=== PATIENT | female | born 1995 | race Caucasian/White ===

== ENCOUNTER 2018-11-06 14:07 | Emergency (ER) | payer MEDICAID ==
[~2018-11-06] VITALS: Ht 172.7 cm; Wt 68.9 kg
[2018-11-06 14:16] VITALS: BP_SYST 125
[2018-11-06] MEDS ORDERED: KETOROLAC TROMETHAMINE 60 MG/2 ML VIAL IM ONE (14:45)
[2018-11-06] MEDS ORDERED: DEXAMETHASONE SOD PHOSPHATE 10 MG/ML VIAL IM ONE (14:45)
[2018-11-06 15:10] VITALS: BP_SYST 125
== END 2018-11-06 15:10 | disposition home or self-care (01) ==
LOC: SED 14:07
DX: J02.9 Acute pharyngitis, unspecified (principal); R03.0 Elevated blood-pressure reading, without diagnosis of hypertension
CPT/HCPCS: 81025; 96372; 99283; J1100; J1885

== ENCOUNTER 2019-01-01 09:55 | Emergency (ER) | payer MEDICAID ==
[~2019-01-01] VITALS: Ht 172.7 cm; Wt 72.6 kg
[2019-01-01 10:04] VITALS: BP_SYST 141
--- NOTE | 2019-01-01 10:09 | NUR ---
Patient to ER bed 8 to gown for evaluation. Side rails up. Report given to John RAMIREZ.
--- NOTE | 2019-01-01 10:15 | NUR ---
Pt presents to ED c/o R aqnkle pain s/p missed step . Pt has no acute distress noted no deformity.Pt unable to bear full weight.
--- NOTE | 2019-01-01 10:18 | NUR ---
ER Dr. Linares at bedside examining patient.
--- NOTE | 2019-01-01 13:03 | NUR ---
Pt tolerated splint placement.
--- NOTE | 2019-01-01 13:06 | NUR ---
Crutches properly fitted for patient by Paras COVARRUBIAS . Patient given crutch walking instructions and demonstration. Is able to demonstrate adequate crutch walking technique with crutches provided.
--- NOTE | 2019-01-01 13:10 | NUR ---
Patient given written and verbal discharge instructions and verbalizes understanding. ER MD discussed with patient the results and treatment provided. Patient in stable condition. ID arm band removed. Rx of motrin given. Patient educated on pain management and to follow up with PMD. Pain Scale 0 . Opportunity for questions provided and answered. Medication side effect fact sheet provided.
[2019-01-01 14:41] VITALS: BP_SYST 135
== END 2019-01-01 13:10 | disposition home or self-care (01) ==
LOC: SED 09:55
DX: S93.401A Sprain of unspecified ligament of right ankle, initial encounter (principal); S93.601A Unspecified sprain of right foot, initial encounter; X50.9XXA Other and unspecified overexertion or strenuous movements or postures, initial encounter; Y93.89 Activity, other specified; Y92.89 Other specified places as the place of occurrence of the external cause; Y99.8 Other external cause status
CPT/HCPCS: 99283